=== PATIENT | female | born 1965 | race Caucasian/White ===

== ENCOUNTER → 2017-03-22 16:27 | Outpatient (CLI) | payer OTHER ==
[~2017-03-22 16:27] MED LIST: ATARAX 25 MG TA25 MG PO; CELEXA10 MG PO; ELIQUIS2.5 MG PO; KEFLEX500 MG PO; OXYCODONE HCL5 MG PO
[2017-05-25 10:48] VITALS: BMI 25.8
== END | disposition home or self-care (01) ==
LOC: D.LABREF 16:27
DX: M17.11 Unilateral primary osteoarthritis, right knee (principal); Z11.8 Encounter for screening for other infectious and parasitic diseases

== ENCOUNTER 2017-05-16 10:00 | Inpatient (IN) | payer OTHER ==
[~2017-05-16] VITALS: Ht 162.6 cm; Wt 67.7 kg
[2017-05-21] MEDS ORDERED: CELEXA10 MG PO (10:09)
[2017-05-21 11:00] LABS: APPEARANCE CLEAR (CLEAR); BILIRUBIN NEGATIVE (NEGATIVE); COLOR STRAW (YELLOW); GLUCOSE NEGATIVE (NEGATIVE); KETONE NEGATIVE (NEGATIVE); NITRITE NEGATIVE (NEGATIVE); PROTEIN NEGATIVE (NEGATIVE); SPECIFIC GRAVITY 1.005 (1.005-1.020); UROBILINOGEN NORMAL (NORMAL)
[2017-05-21 11:01] LABS: BASOPHILS 0.3 % (0-2); EOSINOPHILS 1.2 % (0-7); HEMATOCRIT 38.9 % (36.0-48.0); IMMATURE GRANULOCYTES 0.1 % (0-5); MCH 30.7 pg (26.0-34.0); MCHC 33.4 g/dL (31.0-37.0); MEAN PLATELET VOLUME 9.1 fL (7.4-10.4); MONOCYTES 8.1 % (2-11); NEUTROPHILS 70.3 % (40-80); PLATELET COUNT 419 10x3/uL (130-400); RBC 4.23 10x6/uL (4.00-5.40); RDW 13.4 % (11.5-14.5); WBC 7.8 10x3/uL (4.8-10.8)
[2017-05-21 11:05] LABS: INR 0.98 (0.85-1.17); PROTIME 12.6 SECONDS (11.6-15.0)
[2017-05-21 11:17] LABS: CALC OSMOLALITY 277 mosm/kg (275-300); CALCIUM 9.2 mg/dL (8.5-10.1); CARBON DIOXIDE 29.9 mmol/L (21.0-32.0); CHLORIDE - SERUM 102 mmol/L (98-107); CREATININE - SERUM 0.7 mg/dL (0.6-1.3); GLUCOSE 93 mg/dL (74-106); POTASSIUM - SERUM 3.5 mmol/L (3.5-5.1); SODIUM 139 mmol/L (136-145); UREA NITROGEN 13 mg/dL (7-18); eGFR NON AFRICAN AMERICAN > 90 mL/min (90-120)
[2017-05-25] VITALS (13 sets, daily range): BP systolic 93–133; BP diastolic 54–77; Ht 162.6 cm; Wt 67.7 kg
[2017-05-25 07:30] LABS: HCG URINE NEGATIVE (NEGATIVE)
--- NOTE | 2017-05-25 13:38 | OP ---
PATIENT NAME: HARLEY CARR MEDICAL RECORD: [id number] :63 LOCATION:[id number] ADMISSION DATE:05/25/17 SURGEON: LAWRENCE ARTHUR DO DATE OF OPERATION: 05/25/2017 PROCEDURE PERFORMED: Right total knee arthroplasty. PREOPERATIVE DIAGNOSIS: Right knee osteoarthritis with a valgus deformity. POSTOPERATIVE DIAGNOSIS: Right knee osteoarthritis with a valgus deformity. INDICATIONS: Ms. Carr is a 52-year-old female who has suffered with valgus deformity in her knee for quite some time. She has had a knee scope in the past and has tried other conservative means including injections and bracing. It did not work well. She got to the point where she was ready to have something done to correct the problem and we had discussion about total knee in the office and she said that she would like to have that done. After having that discussed, she was scheduled for surgery. SURGEON: Lawrence Arthur DO TOURNIQUET TIME: 45 minutes. BLOOD LOSS: 100 mL. COMPLICATIONS: None. DESCRIPTION OF PROCEDURE: The patient received a block in the preoperative area by anesthesia, was taken to the operative suite, laid in supine position, and given general anesthetic. A 2 grams Ancef and a gram of TXA. The right lower extremity was prepped and draped in sterile fashion. Timeout was performed, everyone was in agreement of correct side, site and patient. The knee was marked and then skin was covered with Ioban. After this was done, the right lower extremity was exsanguinated with an Esmarch and then tourniquet was inflated to 350 mmHg. After this was done, the incision commenced down the center part of the anterior knee. Then, careful dissection was made down to the capsule itself. The knife was switched out to a new 10 blade and then capsulotomy was performed in medial parapatellar approach. After this was done, osteophytes were removed off the femur and the knee was brought into extension. Osteophytes were taken off the patella and patella was milled down to the appropriate size. After this was done, the knee was brought into flexion and the medullary canal entered with a drill. The intramedullary guide was put into place and the distal femur cut was made. After this femur cut was made, the attention was drawn to the tibia and resected the tibia base off the lateral side due to valgus deformity. Once this resection was done, the menisci removed and a large loose body was removed out of the posterior medial aspect of the knee. After this was done, the extension block was put in and seemed to fit quite well with a well balanced knee after the posterior and lateral corner had been released a little bit. Once this was done, the knee was flexed up and the femur was sized, noted to be a 62.5 and 4-in-1 cutting block was used to make the anterior, posterior, and chamfer cuts. Once this was done, the trial was put into place and then the tibial tray was sized to be 71. The poly was put in, knee was brought through range of motion, and the rotation was marked. The drill holes were then drilled in the femur for the implant and the tibia was prepped and cement was mixed. The patella was then prepped as well. Three OPERATIVE REPORT [id number] HARLEY CARR drill holes were placed in the patella for rim preparation for the implant. After it was done, cement was mixed. The tibia was thoroughly irrigated and dried and then the cement was placed into the tibia as well as on the implant and then the tibial implant was put into place and impacted. Excess cement was removed. The femur was then put into place and a 10 poly was put in between them and knee was brought into extension and the patella was then put in place and the screws were put in. Excess cement was removed. After the excess cement was removed, the tourniquet was let down and any bleeders were coagulated at that time with the plasma knife. After plasma knife was used, the TXA was given again another gram and the cement had dried after 13 minutes. We then trialed a deep-dish 10 poly and patella, which seemed to be very good fit and very well balanced and we decided to use that one. We then implanted the 10 poly deep-dish with the poly and the tibial tray locking mechanism was put into place. The knee was then thoroughly irrigated and dried and then the wrist was put into the knee joint itself. The capsule was then closed with #1 pop-offs in [id number] fashion and the capsule was irrigated and Slade was put on top of that and after being dried, then the skin was closed with 2-0 Vicryl in an inverted interrupted fashion and a ZipLine was put on the skin incision. Then, Ashley 4 x 4s, ABD, Webril, and Moo wrap were put on the knee and a ELIZABETH hose was put up to the knee. After this, the patient was awakened and taken to recovery room in stable condition. TRANSINT:[id number] Voice Confirmation ID: [id number] DOCUMENT ID: [id number] LAWRENCE ARTHUR DO at 1338 CC: [id number] DICTATION DATE: 05/25/17931 VEGETABLE BUNCHER: 05/25/17 1049 ADM IN [facility] [address] [id number]
[2017-05-26 03:30] VITALS: BP 120/75
[2017-05-26 05:14] LABS: BASOPHILS 0.1 % (0-2); EOSINOPHILS 0 % (0-7); HEMATOCRIT 32.5 % (36.0-48.0); IMMATURE GRANULOCYTES 0.2 % (0-5); LYMPHOCYTES 12.3 % (15-50); MCH 31.2 pg (26.0-34.0); MCHC 33.8 g/dL (31.0-37.0); MCV 92.1 fL (80.0-100.0); MEAN PLATELET VOLUME 9.4 fL (7.4-10.4); MONOCYTES 9.5 % (2-11); NEUTROPHILS 77.9 % (40-80); PLATELET COUNT 384 10x3/uL (130-400); RBC 3.53 10x6/uL (4.00-5.40); RDW 13.8 % (11.5-14.5); WBC 14.8 10x3/uL (4.8-10.8)
[2017-05-26 05:42] LABS: ALBUMIN 3.1 g/dL (3.4-5.0); ALKALINE PHOSPHATASE 39 U/L (46-116); ALT (SGPT) 19 U/L (10-68); CALC OSMOLALITY 277 mosm/kg (275-300); CALCIUM 8.2 mg/dL (8.5-10.1); CARBON DIOXIDE 26.9 mmol/L (21.0-32.0); CHLORIDE - SERUM 106 mmol/L (98-107); CREATININE - SERUM 0.6 mg/dL (0.6-1.3); GLUCOSE 103 mg/dL (74-106); POTASSIUM - SERUM 3.3 mmol/L (3.5-5.1); SODIUM 140 mmol/L (136-145); UREA NITROGEN 11 mg/dL (7-18); eGFR NON AFRICAN AMERICAN > 90 mL/min (90-120)
[2017-05-26 07:03] VITALS: BP 128/81
[2017-05-26 11:10] VITALS: BP 129/73
[2017-05-26 14:58] VITALS: BP 147/78
[2017-05-26 20:00] VITALS: BP 158/83
[2017-05-27] VITALS: BP 123/65
[2017-05-27 05:00] VITALS: BP 136/77
[2017-05-27 06:10] LABS: BASOPHILS 0.1 % (0-2); EOSINOPHILS 0.9 % (0-7); HEMATOCRIT 34.3 % (36.0-48.0); HEMOGLOBIN 11.7 g/dL (12-16); IMMATURE GRANULOCYTES 0.3 % (0-5); LYMPHOCYTES 15.8 % (15-50); MCHC 34.1 g/dL (31.0-37.0); MEAN PLATELET VOLUME 9.6 fL (7.4-10.4); MONOCYTES 10.3 % (2-11); NEUTROPHILS 72.6 % (40-80); PLATELET COUNT 426 10x3/uL (130-400); RBC 3.77 10x6/uL (4.00-5.40); RDW 13.7 % (11.5-14.5); WBC 11.4 10x3/uL (4.8-10.8)
[2017-05-27 06:35] LABS: ALBUMIN 3.3 g/dL (3.4-5.0); ALKALINE PHOSPHATASE 48 U/L (46-116); CALCIUM 8.6 mg/dL (8.5-10.1); CARBON DIOXIDE 28.6 mmol/L (21.0-32.0); CHLORIDE - SERUM 103 mmol/L (98-107); CREATININE - SERUM 0.6 mg/dL (0.6-1.3); GLUCOSE 130 mg/dL (74-106); PROTEIN - SERUM 6.8 g/dL (6.4-8.2); SODIUM 140 mmol/L (136-145); eGFR NON AFRICAN AMERICAN > 90 mL/min (90-120)
[2017-05-27 06:40] LABS: CALC OSMOLALITY 278 mosm/kg (275-300); UREA NITROGEN 6 mg/dL (7-18)
[2017-05-27 06:41] LABS: ALT (SGPT) 24 U/L (10-68); POTASSIUM - SERUM 2.8 mmol/L (3.5-5.1)
[2017-05-27 09:02] VITALS: BP 162/88
[2017-05-27] MEDS ORDERED: ELIQUIS2.5 MG PO (11:28)
[2017-05-27] MEDS ORDERED: ATARAX 25 MG TA25 MG PO (11:28)
[2017-05-27] MEDS ORDERED: OXYCODONE HCL5 MG PO (11:29)
[2017-05-27] MEDS ORDERED: KEFLEX500 MG PO (11:29)
== END 2017-05-27 14:57 | disposition home or self-care (01) | DRG 470 ==
LOC: D.SDCHOLD 10:00 → D.MS 05-25 05:30 → D.SDCHOLD 05-25 05:30 → D.MS 05-25 09:51 → D.SDCHOLD 05-25 10:00 → D.MS 05-27 14:57
PROVIDERS: Emergency Medicine; ADMIT Orthopaedic Surgery
PROC: 0SCC0ZZ Extirpation of Matter from Right Knee Joint, Open Approach (ICD-10-PCS; 2017-05-25)
PROC: 0SRC0J9 Replacement of Right Knee Joint with Synthetic Substitute, Cemented, Open Approach (ICD-10-PCS; principal; 2017-05-25 07:30)
DX: M17.11 Unilateral primary osteoarthritis, right knee (principal); M21.061 Valgus deformity, not elsewhere classified, right knee; M25.761 Osteophyte, right knee; M23.41 Loose body in knee, right knee; E87.6 Hypokalemia; D72.829 Elevated white blood cell count, unspecified

== ENCOUNTER → 2018-07-05 08:00 | Outpatient (CLI) | payer OTHER ==
[2017-05-25 10:48] VITALS: BMI 25.8
== END | disposition home or self-care (01) ==
LOC: D.MAMMO 08:00
DX: Z12.31 Encounter for screening mammogram for malignant neoplasm of breast (principal)

== ENCOUNTER 2020-10-20 13:30 | Outpatient (CLI) | payer BC ==
[2017-05-25 10:48] VITALS: BMI 25.8
== END 2020-10-20 14:00 | disposition home or self-care (01) ==
LOC: D.MAMMO 13:30
PROVIDERS: ATTEND Nurse Practitioner Family
DX: Z12.31 Encounter for screening mammogram for malignant neoplasm of breast (principal)